=== PATIENT | female | born 1945 | race Caucasian/White ===

== ENCOUNTER 2017-06-28 19:52 | Emergency (ER) | payer MEDICARE, OTHER ==
[~2017-06-28] VITALS: Ht 167.6 cm; Wt 63.5 kg
[~2017-06-28 19:52] MED LIST: ASPIR 8181 MG PO; BUSPIRONE HCL10 MG PO; CENTRUM SILVER1 EAC4 PO; CO Q-10100 MG PO; DILTIAZEM 24HR360 M1 PO; LIPITOR10 MG PO; MICARDIS40 MG PO; NEURONTIN 300300 M1 PO; OMEGA-31000 M1 PO; PRILOSEC OTC20 MG PO; PROZAC10 MG PO; REQUIP 0.25 M0.25 MG PO; UNABLE TO PROVIDE
[2017-06-28] MEDS ORDERED: ALPRAZOLAM 0.50.5 M1 (20:23)
[2017-06-28] MEDS ORDERED: COZAAR 50 MG TA50 M2 PO (20:24)
[2017-06-28] MEDS ORDERED: ACYCLOVIR 800800 MG (20:24)
[2017-06-28] MEDS ORDERED: PROTONIX40 M1 (20:24)
[2017-06-28] MEDS ORDERED: DILTIAZEM 24HR120 M2 (20:25)
[2017-06-28] MEDS ORDERED: PREMARIN0.3 MG (20:26)
[2017-06-28] MEDS ORDERED: VENLAFAXINE HCL75 M1 (20:26)
[2017-06-28 20:42] LABS: HEMATOCRIT 40.2 % (37.0-47.0); HEMOGLOBIN 13.3 gm/dL (12.0-15.0); MCH 28.6 pg (26.0-34.0); MCHC 33.1 g/dL (28.0-37.0); MCV 86.4 fL (80.0-100.0); MPV 6.8 fl. (7.2-11.1); NUCLEATED RBCS 0 /100WBC; PLATELET COUNT* 369 thou/uL (150-400); RBC 4.65 mil/uL (4.20-5.00); RDW-CV 13.4 % (10.5-14.5); WBC 13.4 thou/uL (4.0-11.0)
[2017-06-28 20:42] LABS: URINE BILIRUBIN NEGATIVE (Negative); URINE BLOOD 1+ (Negative); URINE CLARITY SL CLOUDY; URINE COLOR YELLOW; URINE GLUCOSE-RANDOM NEGATIVE (Negative); URINE KETONES 1+ (Negative); URINE LEUKOCYTES-REFLEX NEGATIVE (Negative); URINE NITRITE-REFLEX NEGATIVE (Negative); URINE PROTEIN TRACE (Negative); URINE SPECIFIC GRAVITY 1.025 (1.005-1.030); URINE UROBILINOGEN 0.2 E.U./dl (0.2-1.0)
[2017-06-28 20:47] LABS: BACTERIA-REFLEX >30 Many /HPF (None Seen); CASTS None Seen /LPF (None Seen); CRYSTALS None Seen /LPF (None Seen); SQUAMOUS >10 Many /LPF (0-3); URINE RBC 3-10 Few /HPF (0-2); URINE WBC-REFLEX None Seen /HPF (0-5)
[2017-06-28 20:50] LABS: ANION GAP 11 mmol/L (7-16); BUN 27 mg/dL (7-18); CALCIUM 8.9 mg/dL (8.5-10.1); CHLORIDE 103 mmol/L (98-107); CO2 24 mmol/L (21-32); CREATININE 0.8 mg/dL (0.6-1.3); GLUCOSE 135 mg/dL (70-99); POTASSIUM 3.8 mmol/L (3.5-5.1); SODIUM 138 mmol/L (136-145)
[2017-06-28 21:00] LABS: ALBUMIN 3.3 g/dL (3.4-5.0); ALKALINE PHOSPHATASE 149 U/L (46-116); LIPASE 122 U/L (73-393); NT-PRO BRAIN NAT PEPTIDE 21 pg/mL (<300); SGOT 25 U/L (15-37); SGPT 25 U/L (30-65); TOTAL BILIRUBIN 0.5 mg/dL (<0.1-1.0); TOTAL PROTEIN 7.8 g/dL (6.4-8.2); TROPONIN-I LEVEL <0.06 ng/mL (<0.06)
[2017-06-28 21:04] LABS: ABSOLUTE EOSINOPHILS 0.1 thou/uL (0.0-0.7); ABSOLUTE LYMPHOCYTES 0.7 thou/uL (0.8-5.3); ABSOLUTE NEUTROPHILS 12.6 thou/uL (1.6-8.1)
[2017-06-28 21:05] LABS: PLATELET ESTIMATE ADEQUATE
[2017-06-28 21:59] LABS: INFLUENZA A ANTIGEN None Detected (None Detect); INFLUENZA B ANTIGEN None Detected (None Detect)
[2017-06-29] MEDS ORDERED: FLEXERIL PO (00:14)
[2017-06-29 00:34] VITALS: BP 130/71
--- NOTE | 2017-06-29 16:35 | EKG ---
[place] [address] ELECTROCARDIOGRAM REPORT Name: CONSTANCE BRICE I Room: [facility]#: [id number] Admission: 06/28/17 Attend Phys: Discharge: 06/29/17 Date of : 49 Report #: [id number] THIS REPORT FOR: //name// [facility] ED Test Date: 2017-06-28 Test Time: 19:57:13 Pat Name: CONSTANCE RINCONMOND Department: Room: Gender: F Shank Inspector: TYRONE : 1945 Requested By: Rosemarie Parsons Order Number: [id number] MD: Pete Castillo Measurements Intervals [place] Rate: 113 P: 70 ME: 172 QRS: 87 QRSD: 93 T: QT: 335 QTc: 460 Interpretive Statements Sinus tachycardia Nonspecific ST segment depression consider ischemia Compared to ECG 10/24/2016 19:01:18 Atrial premature complex(es) no longer present Electronically Signed On 06-29-2017 16:35:34 SINGLE SPINDLE SCREW MACHINE OPERATOR by Pete Castillo [email or web address] <ELECTRONICALLY SIGNED> By: Pete Castillo MD, [facility] 06/29/17 1635 56 56 Pete Castillo MD, FACC /EPI
== END 2017-06-29 00:37 | disposition home or self-care (01) ==
LOC: M.ERS 19:52
PROVIDERS: Emergency Medicine
DX: M62.838 Other muscle spasm (principal); I10 Essential (primary) hypertension; E78.00 Pure hypercholesterolemia, unspecified; F32.9 Major depressive disorder, single episode, unspecified; Z86.73 Personal history of transient ischemic attack (TIA), and cerebral infarction without residual deficits; Z98.890 Other specified postprocedural states; Z88.5 Allergy status to narcotic agent

== ENCOUNTER 2018-05-05 13:56 | Emergency (ER) | payer MEDICARE, OTHER ==
[~2018-05-05] VITALS: Ht 165.1 cm; Wt 63.5 kg
[~2018-05-05 13:56] MED LIST changes: +ACYCLOVIR 800800 MG; +ALPRAZOLAM 0.50.5 M1; +COZAAR 50 MG TA50 M2 PO; +DILTIAZEM 24HR120 M2; +FLEXERIL PO; +PREMARIN0.3 MG; +PROTONIX40 M1; +VENLAFAXINE HCL75 M1
[2018-05-05] MEDS ORDERED: KEFLEX500 M2 PO (16:18)
[2018-05-05] MEDS ORDERED: NORCO 5-325 TA1 EAC1 PO (16:18)
[2018-05-05 16:36] VITALS: BP 111/69
== END 2018-05-05 16:37 | disposition home or self-care (01) ==
LOC: M.ERS 13:56
DX: S61.216A Laceration without foreign body of right little finger without damage to nail, initial encounter (principal); I10 Essential (primary) hypertension; E78.5 Hyperlipidemia, unspecified; F32.9 Major depressive disorder, single episode, unspecified; Z90.49 Acquired absence of other specified parts of digestive tract; Z86.73 Personal history of transient ischemic attack (TIA), and cerebral infarction without residual deficits; W26.8XXA Contact with other sharp object(s), not elsewhere classified, initial encounter; Y93.89 Activity, other specified; Y92.89 Other specified places as the place of occurrence of the external cause; Y99.8 Other external cause status

== ENCOUNTER 2020-02-12 11:32 | Emergency (ER) | payer MEDICARE, OTHER ==
[~2020-02-12] VITALS: Ht 165.1 cm; Wt 65.3 kg
[~2020-02-12 11:32] MED LIST changes: +ATORVASTATIN CA40 MG PO; +EFFEXOR XR75 MG PO; +KEFLEX500 M2 PO; +LEVAQUIN 500 M500 MG PO; +NORCO 5-325 TA1 EAC1 PO; +SPIRIVA INH; +VENTOLIN HFA 1818 GM INH; +ZYRTEC10 M4 PO
[2020-02-12 12:11] LABS: ABSOLUTE BASOPHILS 0.2 thou/uL (0.0-0.2); ABSOLUTE EOSINOPHILS 0.2 thou/uL (0.0-0.7); ABSOLUTE LYMPHOCYTES 5.4 thou/uL (0.8-5.3); ABSOLUTE NEUTROPHILS 8.5 thou/uL (1.6-8.1); BASOPHILS 1.5 %; EOSINOPHILS 1.3 %; HEMATOCRIT 43.2 % (37.0-47.0); HEMOGLOBIN 14.7 gm/dL (12.0-15.0); LYMPHOCYTES 35.4 %; MCH 29.3 pg (26.0-34.0); MCV 86.2 fL (80.0-100.0); MONOCYTES 6.3 %; MPV 7.5 fl. (7.2-11.1); NUCLEATED RBCS 0 /100WBC; PLATELET COUNT* 440 thou/uL (150-400); POLYS 55.5 %; RBC 5.02 mil/uL (4.20-5.00); RDW-CV 13.4 % (10.5-14.5); WBC 15.4 thou/uL (4.0-11.0)
[2020-02-12 12:12] LABS: URINE BILIRUBIN NEGATIVE (Negative); URINE BLOOD NEGATIVE (Negative); URINE CLARITY CLEAR; URINE COLOR YELLOW; URINE GLUCOSE-RANDOM NEGATIVE (Negative); URINE KETONES 2+ (Negative); URINE LEUKOCYTES-REFLEX NEGATIVE (Negative); URINE NITRITE-REFLEX NEGATIVE (Negative); URINE PROTEIN NEGATIVE (Negative); URINE SPECIFIC GRAVITY >= 1.030 (1.005-1.030); URINE UROBILINOGEN 0.2 E.U./dl (0.2-1.0)
[2020-02-12 12:15] LABS: CALCIUM 10.3 mg/dL (8.5-10.1); CREATININE 1.2 mg/dL (0.6-1.3); POTASSIUM 3.2 mmol/L (3.5-5.1)
[2020-02-12 12:20] LABS: ALBUMIN 4.5 g/dL (3.4-5.0); APTT 26.7 Seconds (25.0-31.3); TOTAL BILIRUBIN 0.9 mg/dL (<0.1-1.0)
[2020-02-12] MEDS ORDERED: ONDANSETRON HCL4 M2 PO (15:03)
[2020-02-12] MEDS ORDERED: BENTYL 20 MG TA20 M1 PO (15:03)
[2020-02-12] MEDS ORDERED: FLAGYL500 M1 PO (15:17)
[2020-02-12] MEDS ORDERED: CIPRO500 M1 PO (15:17)
[2020-02-12 15:22] VITALS: BP 96/47
--- NOTE | 2020-02-12 16:03 | EKG ---
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: : 1945 Requested By: Holly Machuca Order Number: [id number] MD: El Ferguson Measurements Intervals [place] Rate: 97 P: 72 [place]: 168 QRS: 84 QRSD: 103 T: 72 QT: 343 QTc: 436 Interpretive Statements Sinus rhythm nonspecific st segment changes Consider right ventricular hypertrophy Abnormal inferior Q waves Compared to ECG 06/28/2017 19:57:1 Sinus tachycardia no longer present Electronically Signed On 02-12-2020 16:03:30 CDT by El Ferguson [email or web address] <ELECTRONICALLY SIGNED> By: El Ferguson MD, FAC 02/12/20 1603 1153 1153 El Ferguson MD, [facility] /EPI
== END 2020-02-12 15:23 | disposition home or self-care (01) ==
LOC: M.ERS 11:32
PROVIDERS: Nurse Practitioner Family
DX: R19.7 Diarrhea, unspecified (principal); R11.2 Nausea with vomiting, unspecified; R10.84 Generalized abdominal pain; I10 Essential (primary) hypertension; E78.5 Hyperlipidemia, unspecified; F32.9 Major depressive disorder, single episode, unspecified; F41.9 Anxiety disorder, unspecified; Z20.828 Contact with and (suspected) exposure to other viral communicable diseases; Z90.49 Acquired absence of other specified parts of digestive tract; Z86.73 Personal history of transient ischemic attack (TIA), and cerebral infarction without residual deficits; Z88.6 Allergy status to analgesic agent

== ENCOUNTER → 2020-02-29 | Outpatient (CLI) | payer MEDICARE, OTHER ==
[~2020-02-29] MED LIST changes: +BENTYL 20 MG TA20 M1 PO; +CIPRO500 M1 PO; +FLAGYL500 M1 PO; +ONDANSETRON HCL4 M2 PO
== END ==
LOC: M.NUC 11:35
PROVIDERS: ATTEND Family Medicine
DX: K59.00 Constipation, unspecified (principal)

== ENCOUNTER → 2020-03-04 | Outpatient (CLI) | payer MEDICARE, OTHER | LOC: M.CT 07:38 | PROVIDERS: ATTEND Family Medicine | DX: K59.00 Constipation, unspecified (principal); J43.9 Emphysema, unspecified; Z90.49 Acquired absence of other specified parts of digestive tract ==

== ENCOUNTER 2020-07-31 15:54 | Inpatient (IN) | payer MEDICARE, OTHER ==
[~2020-07-31] VITALS: Ht 167.6 cm; Wt 66.7 kg
[2020-07-31 16:00] VITALS: BP 151/79
[2020-07-31] MEDS ORDERED: PRILOSEC OTC20 MG PO (16:06)
[2020-07-31] MEDS ORDERED: LINZESS72 MCG PO (16:06)
[2020-07-31 16:57] LABS: ABSOLUTE BASOPHILS 0.1 thou/uL (0.0-0.2); ABSOLUTE EOSINOPHILS 0.2 thou/uL (0.0-0.7); ABSOLUTE LYMPHOCYTES 2.2 thou/uL (0.8-5.3); ABSOLUTE MONOCYTES 0.8 thou/uL (0.0-1.2); ABSOLUTE NEUTROPHILS 3.4 thou/uL (1.6-8.1); BASOPHILS 1.8 %; EOSINOPHILS 3.7 %; HEMATOCRIT 39.5 % (37.0-47.0); LYMPHOCYTES 32.5 %; MCH 27.7 pg (26.0-34.0); MCHC 32.9 g/dL (28.0-37.0); MCV 84.2 fL (80.0-100.0); MONOCYTES 11.9 %; MPV 6.4 fl. (7.2-11.1); NUCLEATED RBCS 0 /100WBC; PLATELET COUNT* 329 thou/uL (150-400); POLYS 50.1 %; RBC 4.69 mil/uL (4.20-5.00); RDW-CV 13.8 % (10.5-14.5); WBC 6.8 thou/uL (4.0-11.0)
[2020-07-31 17:08] LABS: CALCIUM 9.7 mg/dL (8.5-10.1); CREATININE 0.9 mg/dL (0.6-1.3); POTASSIUM 4.3 mmol/L (3.5-5.1)
[2020-07-31 17:16] LABS: APTT 24.8 Seconds (25.0-31.3); PROTIME 10.3 Seconds (9.20-11.50)
[2020-07-31 17:18] LABS: ALBUMIN 3.3 g/dL (3.4-5.0); DIRECT BILIRUBIN 0.1 mg/dL (<0.1-0.3); MAGNESIUM 1.9 mg/dL (1.8-2.4); PHOSPHORUS* 3.6 mg/dL (2.5-4.9); TOTAL BILIRUBIN 0.4 mg/dL (<0.1-1.0); TOTAL PROTEIN 7.2 g/dL (6.4-8.2)
[2020-07-31 17:44] LABS: URINE BILIRUBIN NEGATIVE (Negative); URINE BLOOD TRACE (Negative); URINE CLARITY SL CLOUDY; URINE COLOR YELLOW; URINE GLUCOSE-RANDOM NEGATIVE (Negative); URINE KETONES NEGATIVE (Negative); URINE LEUKOCYTES NEGATIVE (Negative); URINE NITRITE NEGATIVE (Negative); URINE PROTEIN TRACE (Negative); URINE SPECIFIC GRAVITY >= 1.030 (1.005-1.030); URINE UROBILINOGEN 0.2 E.U./dl (0.2-1.0)
[2020-07-31 18:26] LABS: BACTERIA >30 Many /HPF (None Seen); CASTS None Seen /LPF (None Seen); CRYSTALS None Seen /LPF (None Seen); MUCUS 0-3 Light strn/LPF (None Seen); SQUAMOUS >10 Many /LPF (0-3); URINE RBC 3-10 Few /HPF (0-2); URINE WBC >25 Many /HPF (0-5)
[2020-07-31 20:36] VITALS: BP 120/54
[2020-07-31 21:10] VITALS: BP 106/63
[2020-08-01 00:55] VITALS: BP 108/61
[2020-08-01 03:57] VITALS: BP 135/70
--- NOTE | 2020-08-01 05:33 | NUR ---
PT ADMITTED TO ROOM 201 DURING PROGRESS CLERK; VSS, A+OX4, UP AD KIMBERLYN, NO HX OF FALLS, 2LO2 NC ON, DENIES PAIN. SHE IS ABLE TO COMMUNICATE HER NEEDS TO STAFF EFFECTIVELY. SHE HAS DENIED THE NEED FOR PAIN MEDICATION UP TO THIS TIME. IV FLUIDS RUNNING PER MD ORDER. CTA DID SHOW PEs.
[2020-08-01 08:09] VITALS: BP 109/63
--- NOTE | 2020-08-01 09:43 | NUR ---
ASSUMED CARE OF PT THIS AM AROUND 0715- RESTAURANT HOST IN PLACE ORDERED, TRACING SR- UPON ASSESSMENT PT NOTED TO BE RESTING IN BED- PT A&O X4- CONT OF B/B- UP AD-KIMBERLYN IN ROOM, STEADY GAIT NOTED- LCTA, RESP EVEN AND UN-LABORED- VSS, 02 SAT 95% ON 2L GUS NC- ABD SOFT/ROUND/NON-TENDER, BS X4 QUADS- LAST BM REPORTED 07/30/20- IV NOTED TO RIGHT AC INTACT, IVF INFUSSING PRESCRIBED- PT DENIES ANY C/O PAIN/DISCOMFORT AT THIS TIME- CALL LIGHT AND PERSONAL BELONGINGS WITH IN REACH- ALL NEEDS MET AT THIS TIME
[2020-08-01 12:00] VITALS: BP 142/71
--- NOTE | 2020-08-01 14:55 | NUR ---
Pt is A&O. Resides at home with . Independent. No DME. Hx of HH. No hx of SNF. Goal is home at dc, no needs anticipated. Anticipate dc in a few days.
[2020-08-01 16:00] VITALS: BP 136/70
--- NOTE | 2020-08-01 16:11 | EKG ---
[place] [address] ELECTROCARDIOGRAM REPORT Name: CONSTANCE BRICE I Room: [address] ADM IN ..#: [id number] Admission: 07/31/20 Attend Phys: Da Morales, Discharge: Date of : 49 Date of Service: 07/31/20 1559 Report #: [id number] THIS REPORT FOR: //name// [facility] ED Test Date: 2020-07-31 Test Time: 15:59:53 Pat Name: CONSTANCE ERVIN URIOSTEGUI Department: Room: [facility] Gender: F Tie Up Worker: CHEY : 1945 Requested By: Clark Katz Order Number: [id number] MD: Mariano Lin Measurements Intervals [place] Rate: 88 P: 71 SD: 177 QRS: 53 QRSD: 103 T: 29 QT: 349 QTc: 423 Interpretive Statements Sinus rhythm Borderline T abnormalities, anterior leads Compared to ECG 02/12/2020 11:53:05 T-wave abnormality now present Small inferior Q waves persist Electronically Signed On 08-01-2020 16:11:13 WRAPPER OPERATOR by Mariano Lin [email or web address] <ELECTRONICALLY SIGNED> By: Mariano Lin MD, [facility] 08/01/20 1611 1559 1559 Mariano Lin MD, [facility] /EPI
[2020-08-01 22:00] VITALS: BP 153/76
[2020-08-02 04:00] VITALS: BP 112/66
--- NOTE | 2020-08-02 05:10 | NUR ---
RECEIVED REPORT AND ASSUMED CARE OF PT AT 193. ASSESSMENT COMPLETED AT 2129. PT SLEPT ALL EVENING AND NIGHT. O2 ON AT 2L/NC, NO SOA NOTED, HOB ELEVATED. DISCUSSED BLOOD THINNER-ELIQUIS, AND WHAT COULD HAVE CAUSED PE. PT AMBULATED TO BR AND BACK ONLY WITH STEADY GAIT. TELEMETRY ON SHOWING SR. NO COMPLAINTS VOICED. HS GOALS OF REST AND SAFETY ACHIEVED. HOURLY ROUNDING OBSERVED. DGT-TOMA WISHED TO BE UPDATED ON PT, DISCUSSED WITH PT AND STATES SHE WORKS EVENINGS AND NOT TO CALL HER THIS AM.
[2020-08-02 12:00] VITALS: BP 124/79
--- NOTE | 2020-08-02 12:56 | 2DMMODE ---
[place] [address] 2 D/M-MODE ECHOCARDIOGRAM Name: CONSTANCE BRICE I Room: [address] IN [facility]#: [id number] Admission: 07/31/20 Attend Phys: Da Morales, Discharge: Date of : 49 Date of Service: 08/02/20 1256 Report #: [id number] THIS REPORT FOR: cc: Harley Quintana MD, Matthew W. MD Holkins, John M. MD [facility] ~ APPROVED REPORT Study performed: 08/02/2020 10:26:10 EXAM: Comprehensive 2D, Doppler, and color-flow Echocardiogram Patient Location: In-Patient Room #: [facility] Status: routine BSA: 1.77 HR: 85 bpm BP: 112/66 mmHg Rhythm: NSR Other Information Study Quality: Good Indications Pulmonary Embolism Chest Pain 2D Dimensions IVSd: 9.75 (7-11mm) LVOT Diam: 20.38 (18-24mm) LVDd: 36.00 mm PWd: 9.52 (7-11mm) Ascending Ao: 34.00 (22-36mm) LVDs: 17.99 (25-40mm) Aortic Root: 41.43 mm Volumes Left Atrial Volume (Systole) LA ESV Index: 11.70 mL/m2 Aortic Valve AoV Peak Cameron.: 1.06 m/s AO Peak Gr.: 4.52 mmHg LVOT Max P.28 mmHg AO Mean Gr.: 2.40 mmHg LVOT Mean P.66 mmHg LVOT Max V: 1.15 m/s AO V2 VTI: 25.64 cm LVOT Mean V: 0.75 m/s CHAN (VTI): 3.19 cm2 LVOT V1 VTI: 25.03 [place] [address] 2 D/M-MODE ECHOCARDIOGRAM Name: CONSTANCE BRICE I Room: [address] [place] [facility]#: [id number] Admission: 07/31/20 Attend Phys: Da Morales, Discharge: Date of : 49 Date of Service: 08/02/20 1256 Report #: [id number] Mitral Valve E/A Ratio: 0.58 MV Decel. Time: 183.37 ms MV E Max Cameron.: 0.55 m/s MV PHT: 53.18 ms MVA (PHT): 4.14 cm2 TDI E/Lateral E': 7.86 E/Medial E': 6.11 Medial E' Cameron.: 0.09 m/s Lateral E' Cameron.: 0.07 m/s Pulmonary Valve PV Peak Cameron.: 0.83 m/s PV Peak Gr.: 2.74 mmHg Tricuspid Valve RAP Estimate: 5.00 mmHg TR Peak Gr.: 26.60 mmHg RVSP: 31.00 mmHg PA Pressure: 31.00 mmHg Left Ventricle The left ventricle is normal size. There is normal LV segmental wall motion. There is normal left ventricular wall thickness. Left ventricular systolic function is normal. The left ventricular ejection fraction is within the normal range. LVEF is 65-70%. Grade I - abnormal relaxation pattern. Right Ventricle The right ventricle is normal size. The right ventricular systolic function is normal. Atria The left atrium size is normal. The right atrium size is normal. Aortic Valve The aortic valve is normal in structure. No aortic regurgitation is present. There is no aortic valvular stenosis. Mitral Valve The mitral valve is normal in structure. There is no mitral valve regurgitation noted. No evidence of mitral valve stenosis. Tricuspid Valve The tricuspid valve is normal in structure[place] [address] 2 D/M-MODE ECHOCARDIOGRAM Name: CONSTANCE BRICE I Room: [address] [place] [facility]#: [id number] Admission: 07/31/20 Attend Phys: Da Morales, Discharge: Date of : 49 Date of Service: 08/02/20 1256 Report #: [id number] regurgitation. Mild pulmonary hypertension. Pulmonic Valve The pulmonary valve is normal in structure. Trace pulmonic regurgitation. Great Vessels Aortic root is moderately dilated. IVC is normal in size and collapses >50% with inspiration. Pericardium There is no pericardial effusion. <Conclusion> The left ventricle is normal size. There is normal left ventricular wall thickness. Left ventricular systolic function is normal. The left ventricular ejection fraction is within the normal range. LVEF is 65-70%. Grade I - abnormal relaxation pattern. The right ventricle is normal size. The left atrium size is normal. The aortic valve is normal in structure. The mitral valve is normal in structure. The tricuspid valve is normal in structure. Aortic root is moderately dilated. IVC is normal in size and collapses >50% with inspiration. There is no pericardial effusion. There is normal LV segmental wall motion. <ELECTRONICALLY SIGNED> By: Mariano Lin MD, FACC 08/02/20 1256 1256 1256 Mariano Lin MD, FACC /INF
[2020-08-02 16:00] VITALS: BP 124/63
[2020-08-02 20:14] VITALS: BP 143/67
[2020-08-02 23:30] VITALS: BP 119/62
[2020-08-03 04:33] VITALS: BP 129/66
--- NOTE | 2020-08-03 05:18 | NUR ---
PT IS ABLE TOP COMMUNICATE HER NEEDS TO STAFF EFFECTIVELY. SHE HAS DENIED THE NEED FOR PAIN MEDICATION UP TO THIS TIME. POSSIBLE ECHO AND REST/ACTIVITY O2 TEST BEFORE POSSIBLE DISCHARGE TODAY.
[2020-08-03] MEDS ORDERED: ELIQUIS5 MG PO (10:05)
[2020-08-03] MEDS ORDERED: PROAIR HFA8.5 GM INH (10:15)
--- NOTE | 2020-08-03 13:00 | NUR ---
DISCONTINUE IV ND TELE. PT UNDERSTANDS ALL FOLLOW UP ORDERS. WILL DISCHARGE TO HOME.
[2020-08-03 13:01] VITALS: BP 129/66
[2020-08-03 15:30] VITALS: BP 129/66
== END 2020-08-03 15:17 | disposition home or self-care (01) | DRG 175 ==
LOC: M.ERS 15:54 → M.2W 19:15 → M.TBA-ER 19:15 → M.2W 20:40
PROVIDERS: Emergency Medicine; ADMIT Internal Medicine; ATTEND Internal Medicine
DX: I26.99 Other pulmonary embolism without acute cor pulmonale (principal); J96.00 Acute respiratory failure, unspecified whether with hypoxia or hypercapnia; I10 Essential (primary) hypertension; E78.5 Hyperlipidemia, unspecified; F32.9 Major depressive disorder, single episode, unspecified; I48.91 Unspecified atrial fibrillation; F41.9 Anxiety disorder, unspecified; Z20.822 Contact with and (suspected) exposure to COVID-19; Z90.49 Acquired absence of other specified parts of digestive tract; Z86.73 Personal history of transient ischemic attack (TIA), and cerebral infarction without residual deficits; Z79.899 Other long term (current) drug therapy; Z79.82 Long term (current) use of aspirin; Z88.5 Allergy status to narcotic agent

== ENCOUNTER 2020-08-21 00:26 | Emergency (ER) | payer MEDICARE, OTHER ==
[~2020-08-21] VITALS: Ht 167.6 cm; Wt 68.0 kg
[~2020-08-21 00:26] MED LIST changes: +ELIQUIS5 MG PO; +LINZESS72 MCG PO; +PROAIR HFA8.5 GM INH
[2020-08-21 01:14] LABS: ABSOLUTE BASOPHILS 0.1 thou/uL (0.0-0.2); ABSOLUTE EOSINOPHILS 0.3 thou/uL (0.0-0.7); ABSOLUTE LYMPHOCYTES 3.5 thou/uL (0.8-5.3); ABSOLUTE MONOCYTES 0.7 thou/uL (0.0-1.2); ABSOLUTE NEUTROPHILS 4.6 thou/uL (1.6-8.1); BASOPHILS 1.2 %; EOSINOPHILS 3.7 %; HEMATOCRIT 36.8 % (37.0-47.0); HEMOGLOBIN 12.2 gm/dL (12.0-15.0); LYMPHOCYTES 37.9 %; MCH 28.1 pg (26.0-34.0); MCHC 33.3 g/dL (28.0-37.0); MCV 84.4 fL (80.0-100.0); MONOCYTES 7.5 %; MPV 6.5 fl. (7.2-11.1); NUCLEATED RBCS 0 /100WBC; PLATELET COUNT* 404 thou/uL (150-400); POLYS 49.7 %; RBC 4.36 mil/uL (4.20-5.00); RDW-CV 13.6 % (10.5-14.5); WBC 9.3 thou/uL (4.0-11.0)
[2020-08-21 01:22] LABS: ANION GAP 7 mmol/L (7-16); BUN 23 mg/dL (7-18); CALCIUM 9.2 mg/dL (8.5-10.1); CHLORIDE 104 mmol/L (98-107); CO2 27 mmol/L (21-32); CREATININE 1.1 mg/dL (0.6-1.3); GLUCOSE 97 mg/dL (70-99); POTASSIUM 3.9 mmol/L (3.5-5.1); SODIUM 138 mmol/L (136-145)
[2020-08-21 01:25] LABS: APTT 28.8 Seconds (25.0-31.3); INR 0.9
[2020-08-21 01:36] LABS: ALBUMIN 3.3 g/dL (3.4-5.0); ALKALINE PHOSPHATASE 175 U/L (46-116); CK-MB MASS < 0.5 ng/mL (<0.5-3.6); LIPASE 153 U/L (73-393); NT-PRO BRAIN NAT PEPTIDE 27 pg/mL (<300); SGOT 31 U/L (15-37); SGPT 65 U/L (30-65); TOTAL BILIRUBIN 0.4 mg/dL (<0.1-1.0); TOTAL PROTEIN 7.1 g/dL (6.4-8.2)
[2020-08-21 03:26] VITALS: BP 119/61
--- NOTE | 2020-08-21 10:23 | EKG ---
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: [facility] : 1945 Requested By: Daniel Caldera Order Number: [id number] MD: El Ferguson Measurements Intervals [place] Rate: 71 P: 70 [place]: 199 QRS: 57 QRSD: 108 T: 57 QT: 417 QTc: 454 Interpretive Statements Sinus rhythm artifact noted RSR' in V1 or V2, right VCD or RVH Borderline T abnormalities, anterior leads Compared to ECG 07/31/2020 15:59:53 T-wave abnormality still present Electronically Signed On 08-21-2020 10:23:01 METAPHYSICS TEACHER by El Ferguson [email or web address] <ELECTRONICALLY SIGNED> By: El Ferguson MD, [facility] 08/21/20 1023 El Ferguson MD, [facility] /EPI
== END 2020-08-21 03:26 | disposition home or self-care (01) ==
LOC: M.ERS 00:26
PROVIDERS: Family Medicine
DX: R07.89 Other chest pain (principal); I10 Essential (primary) hypertension; E78.5 Hyperlipidemia, unspecified; Z90.49 Acquired absence of other specified parts of digestive tract; Z86.73 Personal history of transient ischemic attack (TIA), and cerebral infarction without residual deficits

== ENCOUNTER 2020-09-09 17:03 | Emergency (ER) | payer MEDICARE, OTHER ==
[~2020-09-09] VITALS: Ht 167.6 cm; Wt 68.0 kg
[2020-09-09 17:16] VITALS: BP 152/83
[2020-09-10] MEDS ORDERED: SPIRIVA18 MCG INH (03:38)
[2020-09-10] MEDS ORDERED: VITAMIN D3250 MCG PO (03:40)
[2020-09-10] MEDS ORDERED: MIRALAX17 G1 PO (03:41)
[2020-09-10] MEDS ORDERED: OMEGA 3 1,0001 EACH PO (03:42)
[2020-09-10] MEDS ORDERED: ZINC50 M2 PO (03:42)
[2020-09-10] MEDS ORDERED: XANAX 0.5 MG0.5 MG PO ×2 (06:33)
== END 2020-09-09 18:20 | disposition left against medical advice (07) ==
LOC: M.ERS 17:03
DX: Z53.21 Procedure and treatment not carried out due to patient leaving prior to being seen by health care provider (principal)

== ENCOUNTER 2020-09-10 03:24 | Emergency (ER) | payer MEDICARE, OTHER ==
[~2020-09-10] VITALS: Ht 167.6 cm; Wt 68.0 kg
[2020-09-10] MEDS ORDERED: SPIRIVA18 MCG INH (03:38)
[2020-09-10] MEDS ORDERED: VITAMIN D3250 MCG PO (03:40)
[2020-09-10] MEDS ORDERED: MIRALAX17 G1 PO (03:41)
[2020-09-10] MEDS ORDERED: OMEGA 3 1,0001 EACH PO (03:42)
[2020-09-10] MEDS ORDERED: ZINC50 M2 PO (03:42)
[2020-09-10 04:02] LABS: ABSOLUTE BASOPHILS 0.1 thou/uL (0.0-0.2); ABSOLUTE EOSINOPHILS 0.2 thou/uL (0.0-0.7); ABSOLUTE LYMPHOCYTES 2.9 thou/uL (0.8-5.3); ABSOLUTE MONOCYTES 0.9 thou/uL (0.0-1.2); ABSOLUTE NEUTROPHILS 6.1 thou/uL (1.6-8.1); BASOPHILS 0.8 %; EOSINOPHILS 2.4 %; HEMOGLOBIN 12.6 gm/dL (12.0-15.0); LYMPHOCYTES 28.2 %; MCH 27.2 pg (26.0-34.0); MCHC 33.2 g/dL (28.0-37.0); MONOCYTES 8.4 %; MPV 6.3 fl. (7.2-11.1); NUCLEATED RBCS 0 /100WBC; PLATELET COUNT* 421 thou/uL (150-400); POLYS 60.2 %; RBC 4.63 mil/uL (4.20-5.00); RDW-CV 13.6 % (10.5-14.5); WBC 10.2 thou/uL (4.0-11.0)
[2020-09-10 04:13] LABS: CALCIUM 9.4 mg/dL (8.5-10.1); POTASSIUM 3.9 mmol/L (3.5-5.1)
[2020-09-10 04:18] LABS: ALBUMIN 3.5 g/dL (3.4-5.0); TOTAL BILIRUBIN 0.7 mg/dL (<0.1-1.0); TOTAL PROTEIN 7.5 g/dL (6.4-8.2)
[2020-09-10 05:45] LABS: URINE BILIRUBIN NEGATIVE (Negative); URINE BLOOD TRACE (Negative); URINE CLARITY CLEAR; URINE COLOR YELLOW; URINE GLUCOSE-RANDOM NEGATIVE (Negative); URINE KETONES TRACE (Negative); URINE LEUKOCYTES-REFLEX NEGATIVE (Negative); URINE NITRITE-REFLEX NEGATIVE (Negative); URINE PROTEIN NEGATIVE (Negative); URINE UROBILINOGEN 0.2 E.U./dl (0.2-1.0)
[2020-09-10] MEDS ORDERED: XANAX 0.5 MG0.5 MG PO (06:33)
[2020-09-10 06:46] VITALS: BP 143/76
== END 2020-09-10 06:46 | disposition home or self-care (01) ==
LOC: M.ERS 03:24
PROVIDERS: Emergency Medicine
DX: R10.13 Epigastric pain (principal); F13.239 Sedative, hypnotic or anxiolytic dependence with withdrawal, unspecified; I10 Essential (primary) hypertension; E78.5 Hyperlipidemia, unspecified; F32.9 Major depressive disorder, single episode, unspecified; F41.9 Anxiety disorder, unspecified; Z90.49 Acquired absence of other specified parts of digestive tract; Z86.73 Personal history of transient ischemic attack (TIA), and cerebral infarction without residual deficits; Z79.899 Other long term (current) drug therapy; Z79.82 Long term (current) use of aspirin; Z88.5 Allergy status to narcotic agent

== ENCOUNTER 2020-09-11 09:15 | Emergency (ER) | payer MEDICARE, OTHER ==
[~2020-09-11] VITALS: Ht 167.6 cm; Wt 68.0 kg
[~2020-09-11 09:15] MED LIST changes: +MIRALAX17 G1 PO; +OMEGA 3 1,0001 EACH PO; +SPIRIVA18 MCG INH; +VITAMIN D3250 MCG PO; +XANAX 0.5 MG0.5 MG PO; +ZINC50 M2 PO
[2020-09-11 09:54] VITALS: BP 99/75
== END 2020-09-11 10:00 | disposition home or self-care (01) ==
LOC: M.ERS 09:15
DX: F41.0 Panic disorder [episodic paroxysmal anxiety] (principal); I10 Essential (primary) hypertension; E78.5 Hyperlipidemia, unspecified; F32.9 Major depressive disorder, single episode, unspecified; Z90.49 Acquired absence of other specified parts of digestive tract; Z86.73 Personal history of transient ischemic attack (TIA), and cerebral infarction without residual deficits; Z79.899 Other long term (current) drug therapy; Z79.82 Long term (current) use of aspirin; Z88.5 Allergy status to narcotic agent

== ENCOUNTER → 2020-10-11 | Outpatient (CLI) | payer MEDICARE, OTHER ==
[~2020-10-11] MED LIST changes: +CELEXA 10 MG TA10 M1 PO
--- NOTE | 2020-10-11 17:24 | CARDNUC ---
[place] [address] CARDIAC NUCLEAR IMAGING REPORT Name: CONSTANCE BRICE I Room: [facility]#: [id number] Admission: 10/11/20 Attend Phys: Rakel Aiken, Discharge: Date of : 49 Date of Service: 10/11/20 1724 Report #: [id number] THIS REPORT FOR: cc: Harley Quintana MD, Matthew W. MD Liston, Michael J. MD [facility] ~ APPROVED REPORT Imaging Protocol: Stress Tc-99m/Rest Tc-99m 1 day Study performed: 10/11/2020 09:15:00 Indication: Chest pain, Abnormal EKG Patient Location: Out-Patient Stress Tech: Nata Matthews Stress Nurse: Alexandra Zimmer RN Ht: 5 ft 5 in Wt: 155 lbs BSA: 1.77 m2 BMI: 25.79 Medical History Medical History: COPD, Stroke/TIA, Atrial Fibrillation,pfo, HTN, Hyperlipidemia,pe Medications: apixaban, asa-81, diltiazem Allergies: clarithromycin, codeine Cardiac Risk Factors: Age, HTN, Hyperlipidemia, Past Smoker, PVD Exercise History: Physically active Resting Data Rest SPECT myocardial perfusion imaging was performed in supine position 30 minutes following the intravenous injection of 9.9 mCi of Tc-99m Sestamibi. Time of rest injection: 09:35 The images were gated to evaluate regional wall motion and calculate left ventricular ejection fraction. Administration Route: IV Administration Site: Right AC Exercise Stress At peak stress, the patient was injected intravenously with 32.5mCi of Tc-99m Sestamibi. Time of stress injection: 11:10 Administration Route: IV Administration Site: [place] [address] CARDIAC NUCLEAR IMAGING REPORT Name: CONSTANCE BRICE I Room: [facility]#: [id number] Admission: 10/11/20 Attend Phys: Rakel Aiken, Discharge: Date of : 49 Date of Service: 10/11/20 1724 Report #: [id number] Heart Rate at time of stress injection: 132 bpm. Patient continued to exercise for 1 minute(s). Gated Stress SPECT was performed 30 minutes after stress injection. The images were gated to evaluate regional wall motion and calculate left ventricular ejection fraction. Prone imaging was performed. Stress Test Details Stress Test: Exercise stress testing was performed using a Wyatt protocol. HR Max Heart Rate (APMHR): 148 bpm Resting HR: 85 bpm Target HR (85% APMHR): 125 bpm Max HR Achieved: 140 bpm % of APMHR: 94 Recovery HR: 100 bpm BP Resting BP: 132/79 mmHg Max BP: 220/75 mmHg Recovery BP: 150/67 mmHg ECG Resting ECG: Sinus Rhythm Stress ECG: Sinus Tachycardia ST Change: None Arrhythmia: None Recovery ECG: Sinus Rhythm Recovery ST Change: None Clinical Reason for Termination: Maximal effort, Dyspnea Exercise duration: 7 min 0 sec Exercise capacity: 8.59 METs Overall Exercise Capacity for Age: Superior Functional Aerobic Impairment 90% Patient tolerated standard Wyatt protocol exercise without significant cardiac symptoms. Stress ECG Conclusion The baseline twelve-lead EKG shows sinus rhythm without significant ST segment or T wave abnormality. EKGs obtained during and post exercise show sinus rhythm and sinus tachycardia with no significant ST segment or T wave changes when compared to baseline. There were no stress-[place] [address] CARDIAC NUCLEAR IMAGING REPORT Name: CONSTANCE BRICE I Room: [facility]#: [id number] Admission: 10/11/20 Attend Phys: Rakel Aiken, Discharge: Date of : 49 Date of Service: 10/11/20 1724 Report #: [id number] Study Quality Study: Good Artifact: No artifact Study Data At rest, the left ventricular ejection fraction was 69%.. Post stress, the left ventricular ejection was 79%.. TID = 0.71. Perfusion Perfusion images obtained at rest and post exercise stress show uniform uptake of the radioisotope throughout the myocardium. Wall Motion Normal left ventricular wall motion. Nuclear Conclusion ECG Findings: negative for ischemia Clinical Findings: negative for ischemia Nuclear Findings: negative for ischemia Exercise Capacity: normal Left Ventricular Function: normal Risk Study: low Perfusion images show no defect to suggest infarct or ischemia. Left ventricular systolic function appears normal on gated studies. This is a low risk study. <Conclusion> The baseline twelve-lead EKG shows sinus rhythm without significant ST segment or T wave abnormality. EKGs obtained during and post exercise show sinus rhythm and sinus tachycardia with no significant ST segment or T wave changes when compared to baseline. There were no stress-induced arrhythmias. <ELECTRONICALLY SIGNED> By: Pete Castillo MD, FACC 10/11/20 1724 23 23 Pete Castillo MD, FACC /INF
== END ==
LOC: M.NUC 10-07 15:21
PROVIDERS: ATTEND Internal Medicine
DX: R07.9 Chest pain, unspecified (principal)

== ENCOUNTER → 2020-11-21 | Outpatient (CLI) | payer MEDICARE, OTHER | LOC: M.RAD 10:15 → M.MRI 11:30 | PROVIDERS: ATTEND Family Medicine | DX: Z00.00 Encounter for general adult medical examination without abnormal findings (principal); S49.91XA Unspecified injury of right shoulder and upper arm, initial encounter; M81.0 Age-related osteoporosis without current pathological fracture; M19.011 Primary osteoarthritis, right shoulder; M85.88 Other specified disorders of bone density and structure, other site; X58.XXXA Exposure to other specified factors, initial encounter; Y92.89 Other specified places as the place of occurrence of the external cause; Y93.89 Activity, other specified; Y99.8 Other external cause status ==

== ENCOUNTER 2021-05-02 14:36 | Emergency (ER) | payer MEDICARE, OTHER ==
[~2021-05-02] VITALS: Ht 165.1 cm; Wt 58.5 kg
[2021-05-02 15:56] LABS: HEMATOCRIT 32.5 % (37.0-47.0); HEMOGLOBIN 10.7 gm/dL (12.0-15.0); MCH 25.9 pg (26.0-34.0); MCV 78.4 fL (80.0-100.0); MPV 6.7 fl. (7.2-11.1); RBC 4.15 mil/uL (4.20-5.00); RDW-CV 16.2 % (10.5-14.5); WBC 8.3 thou/uL (4.0-11.0)
[2021-05-02 16:09] LABS: CALCIUM 9.3 mg/dL (8.5-10.1); CREATININE 0.9 mg/dL (0.6-1.3); POTASSIUM 3.4 mmol/L (3.5-5.1)
[2021-05-02 17:17] VITALS: BP 112/46
== END 2021-05-02 17:17 | disposition home or self-care (01) ==
LOC: M.ERS 14:36
PROVIDERS: Emergency Medicine Emergency Medical Services
DX: F41.9 Anxiety disorder, unspecified (principal); R51.9 Headache, unspecified; I10 Essential (primary) hypertension; E78.5 Hyperlipidemia, unspecified; F32.9 Major depressive disorder, single episode, unspecified; Z98.890 Other specified postprocedural states; Z90.49 Acquired absence of other specified parts of digestive tract; Z79.82 Long term (current) use of aspirin; Z79.899 Other long term (current) drug therapy; Z88.5 Allergy status to narcotic agent